=== PATIENT | male | born 1970 | race Caucasian/White ===

== ENCOUNTER 2025-04-14 11:22 | Emergency (ER) | payer BC ==
[2025-04-14 12:55] LABS: Absolute Lymphocytes (CBC) 2.1 K/uL (0.7-4.9); Hematocrit 44.5 % (39.6-49.0); Hemoglobin 15.0 g/dL (13.6-17.9); MCH 30.9 pg (27.0-35.0); MCHC 33.8 g/dL (32.0-36.0); MCV 91.4 fL (80-100); MPV 6.9 fL (7.6-11.3); Nucleated RBC Absolute Count 0.0 (0-0); Nucleated Red Blood Cells % 0.1 % (0-0); RBC Red Blood Cell Count 4.87 M/uL (4.33-5.43); White Blood Count 5.60 thou/uL (4.3-10.9)
[2025-04-14 13:00] LABS: Urine Microscopic Reflex YN NO UMIC
[2025-04-14 13:15] LABS: ALT/SGPT 17.0 U/L (16-61); AST/SGOT 23.0 U/L (15-37); Albumin 3.5 g/dL (3.4-5.0); Albumin/Globulin Ratio 1.1 (1.1-1.8); Alkaline Phosphatase 69.0 U/L (45-117); Anion Gap 9.3 mEq/L (5.0-15.0); BUN Blood Urea Nitrogen 12.0 mg/dL (7-18); Globulin 3.3 g/dL (2.3-3.5); Glucose Level 91.0 mg/dL (74-106); Potassium 4.3 mEq/L (3.5-5.1)
--- NOTE | 2025-04-14 14:17 | RAD REPORT ---
EXAMINATION: CT Abdomen Pelvis W Contrast CLINICAL INDICATION: Male, 54 years old. ABD PAIN TECHNIQUE: CT abdomen and pelvis was performed, after the administration of IV contrast, as per [facility] protocol. Axial, sagittal and coronal reconstructions were obtained. One or more of the following dose reduction techniques were used: Automated exposure control, adjustment of the mA and k V according to patient size, and iterative reconstruction. Unless otherwise specified, incidental findings do not require dedicated imaging follow-up. COMPARISON: No prior exam. FINDINGS: LOWER CHEST: The visualized lung bases are clear. LIVER: Normal in size and contour. No focal lesion. BILIARY SYSTEM: No suspicious abnormalities. SPLEEN: Normal size. No focal lesion. PANCREAS: No mass, ductal dilation, or isaiah-pancreatic fluid. ADRENALS: Normal; no mass. KIDNEYS: Normal size and contour. No hydronephrosis. URINARY BLADDER: Unremarkable. GASTROINTESTINAL TRACT: No evidence of free air, significant intra-abdominal free fluid, bowel obstru ction or abscess. APPENDIX: Appendix not visualized, but no inflammatory changes in region of appendix. LYMPH NODES: No lymphadenopathy. MUSCULOSKELETAL: No acute or suspicious osseous abnormality. ADDITIONAL FINDINGS: None. IMPRESSION: No acute or concerning abnormalities seen in the abdomen or pelvis.
--- NOTE | 2025-04-14 14:33 | ER ---
Nurse's Notes [facility] Name: Kit Bergman Age: 54 yrs Sex: Male : 1970 Arrival Date: 04/14/2025 Time: 11:22 Bed 9 Private MD: Diagnosis: Lower abdominal pain, unspecified;Elevated blood-pressure reading, without diagnosis of hypertension;Rectal bleeding Presentation: 04/14 11:53 Chief complaint: Patient states: Lower abdominal pain, rectal bleeding, dark blood x 2 jl7 days. Coronavirus screen: At this time, the client does not indicate any symptoms associated with coronavirus-19. Ebola Screen: No symptoms or risks identified at this time. Initial Sepsis Screen: Does the patient meet any 2 criteria? No. Patient's initial sepsis screen is negative. Does the patient have a suspected source of infection? No. Patient's initial sepsis screen is negative. Risk Assessment: Do you want to hurt yourself or someone else? Patient reports no desire to harm self or others. Onset of symptoms is unknown. 11:53 Method Of Arrival: Ambulatory 7 11:53 Acuity: TIM 3 jl7 Triage Assessment: 11:55 General: Appears in no apparent distress. uncomfortable, Behavior is calm, cooperative, jl7 appropriate for age. Pain: Complains of pain in right lower quadrant and left lower quadrant Pain currently is 0 out of 10 on a pain scale. at worst was 4 out of 10 on a pain scale. Neuro: Cooper Agitation-Sedation Scale (RASS): 0 - Alert and Calm. GI: Reports bloody stool. Historical: - Allergies: 11:55 PENICILLINS; jl7 - Home Meds: 11:55 pantoprazole oral [Active]; jl7 - PMHx: 11:55 GERD; jl7 - Immunization history:: Adult Immunizations unknown. - Infectious Disease History:: Denies. - Social history:: Smoking status: Patient denies any tobacco usage or history of. Screenin:47 [facility] ED Fall Risk Assessment (Adult) History of falling in the last 3 months, ap3 including since admission No falls in past 3 months (0 pts) Confusion or Disorientation No (0 pts) Intoxicated or Sedated No (0 pts) Impaired Gait No (0 pts) Mobility Assist Device Used No (0 pt) Altered Elimination No (0 pt) Score/Fall Risk Level 0 - 2 = Low Risk Oriented to surroundings, Maintained a safe environment, Educated pt \T\ family on fall prevention, incl call for assistance when getting out of bed, Assessed \T\ reinforced patient's understanding of fall precautions, Hourly rounding (assess needs \T\ fall precautionary measures) done, Used ambulatory aids as needed (educated on \T\ assisted with). 14:48 Abuse screen: Denies threats or abuse. Nutritional screening: No deficits noted. ap3 Tuberculosis screening: No symptoms or risk factors identified. Assessment: 14:48 GI: Bowel sounds present X 4 quads. Abd is soft and non tender Abd is soft. ap3 Vital Signs: 11:53 BP 154 / 97; Pulse 63; Resp 17; Temp 97; Pulse Ox 98% ; Weight 63.5 kg; Height 5 ft. 6 jl7 in. ; Pain 0/10; 14:49 Pulse 57; Resp 18; Pulse Ox 99% on R/A; ap3 11:53 Body Mass Index 22.60 (63.50 kg, 167.64 cm) jl7 11:53 Pain Scale: Adult jl7 ED Course: 11:29 Patient arrived in ED. cj3 11:30 Austin Miles DO is Attending Physician. ms3 11:55 Triage completed. jl7 11:55 Arm band placed on right wrist. jl7 12:51 Initial lab(s) drawn, by clinical laboratory aide, sent to lab. Inserted saline lock: 20 gauge in left ts3 antecubital area, using aseptic technique. Blood collected. Flushed with 10 mL NS. 12:51 Urine collected: clean catch specimen, sent to lab. ts3 13:26 CT Abd/Pelvis - IV Contrast Only In Process Unspecified. EDMS 13:48 Served as a wearing apparel presser during rectal exam. ap3 14:48 Patient has correct armband on for positive identification. Provided Education on: ap3 discharge instructions . 14:48 IV discontinued, intact, bleeding controlled, No redness/swelling at site. Pressure ap3 dressing applied. Administered Medications: No medications were administered Medication: 14:48 VIS not applicable for this client. ap3 Outcome: 14:32 Discharge ordered by MD. ms3 14:48 Discharged to home ambulatory, ap3 14:48 Condition: good 14:48 Discharge instructions given to patient, Instructed on discharge instructions, follow up and referral plans. Demonstrated understanding of instructions, follow-up care, 14:49 Patient left the ED. ap3 Signatures: Dispatcher [employer] lIda Pino RN RN jl7 Mary Nguyen RN RN ap3 Austin Miles DO DO ms3 Geraldine Mc cj3 Gabrielle Pineda 3
--- NOTE | 2025-04-14 14:33 | EDPHYS ---
Physician Documentation [facility] Name: Kit Bergman Age: 54 yrs Sex: Male : 1970 Arrival Date: 04/14/2025 Time: 11:22 Bed 9 Private MD: ED Physician Austin Miles HPI: 04/14 20:35 This 54 yrs old Male presents to ER via Ambulatory with complaints of Abdominal Pain, ms3 Rectal Bleeding. 20:35 54-year-old male past medical history of GERD presents to the emergency department for ms3 lower abdominal pain that is been ongoing for 2-1/2 days. Patient states the pain is located in the right lower quadrant. Patient rates his discomfort a 3/10 and denies radiation. Patient states he has noticed a small amount of dark blood from his rectum for 2 days. Patient endorses nausea. Patient denies fevers, chills, vomiting, diarrhea.. Historical: - Allergies: 11:55 PENICILLINS; jl7 - Home Meds: 11:55 pantoprazole oral [Active]; jl7 - PMHx: 11:55 GERD; jl7 - Immunization history:: Adult Immunizations unknown. - Infectious Disease History:: Denies. - Social history:: Smoking status: Patient denies any tobacco usage or history of. ROS: 20:35 Constitutional: Negative for fever, and chills. Cardiovascular: Negative for chest ms3 pain, and palpitations. Respiratory: Negative for shortness of breath, cough, wheezing, and pleuritic chest pain, 20:35 MS/Extremity: Negative for injury and deformity, Skin: Negative for injury, rash, and discoloration, 20:35 Abdomen/GI: Positive for abdominal pain, rectal bleeding, Exam: 20:35 Constitutional: This is a well developed, well nourished patient who is awake, alert, ms3 and in no acute distress. Cardiovascular: Regular rate and rhythm with a normal S1 and S2. No gallops, murmurs, or rubs. Normal PMI, no JVD. No pulse deficits. Respiratory: Lungs have equal breath sounds bilaterally, clear to auscultation and percussion. No rales, rhonchi or wheezes noted. No increased work of breathing, no retractions or nasal flaring. Abdomen/GI: Soft, non-tender, with normal bowel sounds. No distension or tympany. No guarding or rebound. No evidence of tenderness throughout. Skin: Warm, dry with normal turgor. Normal color with no rashes, no lesions, and no evidence of cellulitis. MS/ Extremity: Pulses equal, no cyanosis. Neurovascular intact. Full, normal range of motion. 20:35 : Rectal exam: Rectal tone: normal, Perineal sensation Normal Stool: brown, mass, is not appreciated, fissure, is not appreciated, the nurse was present for the exam, Vital Signs: 11:53 BP 154 / 97; Pulse 63; Resp 17; Temp 97; Pulse Ox 98% ; Weight 63.5 kg; Height 5 ft. 6 jl7 in. ; Pain 0/10; 14:49 Pulse 57; Resp 18; Pulse Ox 99% on R/A; ap3 11:53 Body Mass Index 22.60 (63.50 kg, 167.64 cm) jl7 11:53 Pain Scale: Adult jl7 MDM: 11:57 Medical Screening Exam initiated ms3 20:35 Differential diagnosis: hemorrhoids, Diverticulosis versus diverticulitis versus anemia ms3 versus appendicitis. Data reviewed: vital signs, nurses notes, lab test result(s), radiologic studies, and as a result, I will discharge patient. Consideration of Admission/Observation Patient was admitted/placed on observation. Counseling: I had a detailed discussion with the patient and/or guardian regarding the historical points, exam findings, and any diagnostic results supporting the discharge/admit diagnosis, lab results, radiology results, the need for outpatient follow up, to return to the emergency department if symptoms worsen or persist or if there are any questions or concerns that arise at home. Special discussion: Based on the patient's Hx, exam, and Dx evaluation, there is no indication for emergent surgery or inpatient Tx. It is understood by the patient/guardian that if the Sx's persist or worsen they need to return immediately for re-evaluation. ED course: Discussed normal hemoglobin, brown stool on rectal exam, and CT results with patient. Patient to follow-up with his physician at [facility] gastroenterology in 2 to 3 days. All questions were answered. Return precautions were discussed include worsening symptoms, or any other concerns. On reevaluation patient is alert and oriented x 4, no apparent distress, nontoxic-appearing, speaking full sentences.. 04/14 11:57 Order name: CBC with Diff; Complete Time: 13:25 ms3 04/14 11:57 Order name: CMP; Complete Time: 13:25 ms3 04/14 11:57 Order name: UA Rfx Pedro Pablo Cult if indicated; Complete Time: 13:25 ms3 04/14 11:57 Order name: CT Abd/Pelvis - IV Contrast Only; Complete Time: 14:21 ms3 04/14 11:57 Order name: IV Saline Lock; Complete Time: 12:51 ms3 04/14 11:57 Order name: Labs collected and sent; Complete Time: 12:51 ms3 Administered Medications: No medications were administered Disposition Summary: 04/14/25 14:32 Discharge Ordered Notes: Location: Home ms3 Condition: Stable ms3 Diagnosis - Lower abdominal pain, unspecified ms3 - Elevated blood-pressure reading, without diagnosis of hypertension ms3 - Rectal bleeding ms3 Followup: ms3 - With: Private Physician - When: 2 - 3 days - Reason: Discharge Instructions: - Discharge Summary Sheet ms3 - Abdominal Pain, Adult ms3 - Hypertension, Adult ms3 - Rectal Bleeding ms3 Forms: - Medication Reconciliation Form ms3 - Antibiotic Education ms3 - Prescription Opioid Use ms3 - Patient Portal Instructions ms3 - Leadership Thank You Letter ms3 Signatures: Dispatcher [employer] Ilda Pino RN RN jl7 Austin Miles DO DO ms3
[2025-04-14 19:48] VITALS: BP 154/97; TEMP 97
[2025-04-14 19:54] VITALS: O2SAT 99
== END 2025-04-14 14:49 | disposition home or self-care (01) ==
LOC: ER 11:22
DX: R10.31 Right lower quadrant pain (principal); K62.5 Hemorrhage of anus and rectum; R03.0 Elevated blood-pressure reading, without diagnosis of hypertension
CPT/HCPCS: 85025; 36415; 81003; 80053; 74177; 99283; Q9967